=== PATIENT | male | born 1995 | race Caucasian/White ===

== ENCOUNTER 2024-07-10 14:46 | Emergency (ER) | payer MEDICAID, OTHER ==
[~2024-07-10] VITALS: Ht 177.8 cm; Wt 150.0 kg
[2024-07-10 15:10] VITALS: O2SAT 99
[2024-07-10] MEDS ORDERED: SULF1TAB48 MT (17:40)
[2024-07-10 18:12] VITALS: BP 142/95; PULSE 80; RESP 16; TEMP 36.83628; O2SAT 99
== END 2024-07-10 18:13 | disposition home or self-care (01) ==
LOC: ER 14:54
DX: L03.116 Cellulitis of left lower limb (principal); F12.90 Cannabis use, unspecified, uncomplicated
CPT/HCPCS: 93005; 93971; 99284